=== PATIENT | female | born 1995 | race African-American/Black ===

== ENCOUNTER 2016-10-29 15:26 | Emergency (ER) | payer BC ==
[2016-10-29 15:31] VITALS: BP 136/96; PULSE 80; RESP 20; TEMP 97.9
--- NOTE | 2016-10-29 16:17 | ED ---
Back Pain HPI - General Chief Complaint: Back Pain/Injury Stated Complaint: neck and back pain Time Seen by Provider: 10/29/16 15:44 Source: patient, RN notes reviewed Limitations: no limitations - History of Present Illness Initial Comments: Patient is a 20-year-old female presents to the emergency room for evaluation right-sided neck pain. Patient states last Tuesday she woke up and began having neck pain. Patient states throughout the week she's been taking Aleve with slight relief of symptoms. Patient states she woke up this morning and turned her neck to the side and felt a crack and worsening pain in the right side of her neck that radiates down to her shoulder blade. Patient numbness or tingling going down her arm. Patient denies headache or dizziness. Patient denies weakness. Patient denies recent fall or head trauma. - Related Data Previous Rx's Medication Instructions Recorded Orphenadrine [Norflex] 100 mg PO Q12H PRN #12 tablet.er 10/29/16 Allergies Allergy/AdvReac Type Severity Reaction Status Date / Time No Known Allergies Allergy Verified 10/29/16 15:29 Review of Systems ROS Statement: Those systems with pertinent positive or pertinent negative responses have been documented in the HPI. ROS Other: All systems not noted in ROS Statement are negative. Past Medical History Past Medical History: No Reported History History of Any Multi-Drug Resistant Organisms: None Reported Past Surgical History: No Surgical Hx Reported Past Psychological History: No Psychological Hx Reported Smoking Status: Never smoker Past Alcohol Use History: Occasional Past Drug Use History: Marijuana General Exam - General Exam Comments Initial Comments: Sitting in exam room, no acute distress. Limitations: no limitations General appearance: alert, in no apparent distress Head exam: Present: atraumatic, normocephalic, normal inspection Eye exam: Present: normal appearance ENT exam: Present: normal exam Neck exam: Present: normal inspection, tenderness (Tenderness and muscle spasming over the right trapezius muscle along the cervical spine) Respiratory exam: Present: normal lung sounds bilaterally. Absent: respiratory distress Cardiovascular Exam: Present: regular rate, normal rhythm, normal heart sounds Extremities exam: Present: normal inspection Back exam: Present: normal inspection Neurological exam: Present: alert, oriented X3, CN II-XII intact, normal gait Expanded Motor strength exam: RUE: 5, RLE: 5 Psychiatric exam: Present: normal affect, normal mood Skin exam: Present: warm, dry, intact, normal color. Absent: rash Course Vital Signs 10/29/16 15:29 Temperature 97.9 F Pulse Rate 80 Respiratory 20 Rate Blood Pressure 136/96 O2 Sat by Pulse 98 Oximetry Medical Decision Making - Medical Decision Making Patient is a 20-year-old male presents to the emergency room for evaluation of right-sided neck pain. patient has no neuro deficits. x-ray negative for acute findings. Advised patient to continue taking aleve and will send patient home with muscle relaxers as needed. Patient states she understands everything that was discussed with her. Return parameters discussed. Case discussed with Dr. Dobson. - Radiology Data Radiology results: report reviewed, image reviewed Disposition Clinical Impression: Cervical strain, acute Disposition: HOME SELF-CARE Condition: Good Instructions: Cervical Strain (ED) Additional Instructions: Warm moist heat. Continue taking Aleve. Take Norflex as needed for severe pain. Do not drive or operate heavy machinery while taking this medication. Please follow up with primary care provider in 1-2 days. If any new symptom arises or symptoms worsen, return to ER as soon as possible. Prescriptions: Orphenadrine [Norflex] 100 mg PO Q12H PRN #12 tablet.er PRN Reason: Pain Referrals: None,Stated [Primary Care Provider] - 1-2 days Time of Disposition: 16:39
--- NOTE | 2016-10-29 16:34 | XR ---
EXAMINATION TYPE: XR cervical spine comp DATE OF EXAM: 10/29/2016 4:27 PM CLINICAL HISTORY: pain COMPARISON: NONE TECHNIQUE: Frontal, lateral, oblique, swimmers, and open mouth view of the cervical spine are obtaine d. FINDINGS: The cervical spine is visualized in its entirety from C1 thru the top of T1 level. It is s atisfactory in alignment without evidence of acute fracture or dislocation. The pre-vertebral soft t issue appears within normal limits. Disc spaces are well preserved. The C1-C2 articulation is unremar kable on the open mouth view. The oblique images are within normal limits. IMPRESSION: No acute fracture or dislocation is seen in the cervical spine.ICD 10 NO FRACTURE, INITI AL EVALUATION
== END 2016-10-29 16:46 | disposition home or self-care (01) ==
LOC: EC 15:26
DX: S16.1XXA Strain of muscle, fascia and tendon at neck level, initial encounter (principal); M25.511 Pain in right shoulder; X58.XXXA Exposure to other specified factors, initial encounter
CPT/HCPCS: 72050; 99283

== ENCOUNTER 2017-01-28 12:34 | Emergency (ER) | payer BC ==
[2017-01-28 12:45] VITALS: BP 120/77; PULSE 62; RESP 17; TEMP 97.7
[2017-01-28] MEDS ORDERED: DIPH,PERTUS(ACELL)TETVAC-LF 0.5 ML VIAL IM ONE (12:59)
--- NOTE | 2017-01-28 13:16 | ED ---
Wound/Laceration HPI - General Chief Complaint: Wound/Laceration Stated Complaint: Laceration on Finger Time Seen by Provider: 01/28/17 12:58 Source: patient, RN notes reviewed Mode of arrival: ambulatory Limitations: no limitations - History of Present Illness Initial Comments: 21-year-old female presents emergency Department chief complaint of finger laceration. Patient states that she is in school at [employer] [place]. Patient states she has a laceration to her right hand third digit. Patient is unsure when her last tetanus was. Patient denies any paresthesias no decreased range of motion. - Related Data Previous Rx's Medication Instructions Recorded Orphenadrine [Norflex] 100 mg PO Q12H PRN #12 tablet.er 10/29/16 Allergies Allergy/AdvReac Type Severity Reaction Status Date / Time No Known Allergies Allergy Verified 10/29/16 15:29 Review of Systems ROS Statement: Those systems with pertinent positive or pertinent negative responses have been documented in the HPI. ROS Other: All systems not noted in ROS Statement are negative. Past Medical History Past Medical History: No Reported History History of Any Multi-Drug Resistant Organisms: None Reported Past Surgical History: No Surgical Hx Reported Past Psychological History: No Psychological Hx Reported Smoking Status: Never smoker Past Alcohol Use History: Occasional Past Drug Use History: Marijuana General Exam Limitations: no limitations General appearance: alert, in no apparent distress Head exam: Present: atraumatic, normocephalic, normal inspection Neck exam: Present: normal inspection. Absent: tenderness, meningismus, lymphadenopathy Respiratory exam: Present: normal lung sounds bilaterally. Absent: respiratory distress, wheezes, rales, rhonchi, stridor Cardiovascular Exam: Present: regular rate, normal rhythm, normal heart sounds. Absent: systolic murmur, diastolic murmur, rubs, gallop, clicks Extremities exam: Present: other (Right hand third digit there is a 2 cm laceration with no deep tendon involvement. Patient has full range of motion neurovascular intact) Course Vital Signs 01/28/17 12:42 Temperature 97.7 F Pulse Rate 62 Respiratory 17 Rate Blood Pressure 120/77 O2 Sat by Pulse 98 Oximetry Procedures - Laceration Laceration #1 Consent Obtained: verbal consent Indication: laceration Site: hand (Right hand third digit) Size (cm): 2 Description: linear, avulsion Depth: simple, single layer Anesthetic Used: lidocaine 1%, without epi Anesthesia Technique: local infiltration Amount (mls): 3 Pre-repair: wound explored, irrigated extensively, deep structures intact Type of Sutures: nylon Size of Sutures: 4-0 Number of Sutures: 4 Technique: simple, interrupted Patient Tolerated Procedure: well, no complications Medical Decision Making - Medical Decision Making 21-year-old female presented for finger laceration. This was closed using sutures. Return parameters were discussed wound care was discussed Disposition Clinical Impression: Finger laceration Disposition: HOME SELF-CARE Condition: Stable Instructions: Care For Your Stitches (ED), Finger Laceration (ED) Additional Instructions: Please return to the Emergency Department if symptoms worsen or any other concerns. Have sutures removed in 10 days. Referrals: Nonstaff,Physician [Primary Care Provider] - 1-2 days Time of Disposition: 13:15
== END 2017-01-28 13:32 | disposition home or self-care (01) ==
LOC: EC 12:34
DX: S61.212A Laceration without foreign body of right middle finger without damage to nail, initial encounter (principal); Z23 Encounter for immunization; W26.0XXA Contact with knife, initial encounter; Y92.214 College as the place of occurrence of the external cause
CPT/HCPCS: 12001; 90471; 90715; 99282